=== PATIENT | male | born 1980 | race Caucasian/White ===

== ENCOUNTER 2022-08-20 03:07 | Inpatient (IN) | payer BC ==
[~2022-08-20] VITALS: Ht 170.2 cm; Wt 77.1 kg
[2022-08-20] MEDS ORDERED: DIAZEPAM 2 MG TABLET PO ONE (03:30)
[2022-08-20 03:46] LABS: ABG BASE EXCESS -2.8 mmol/L; ABG HCO3 22.9 mmol/L; ABG PCO2 43.2 mmHg (35.0-45.0); ABG PH 7.342 (7.350-7.450); ABG PO2 74.1 mmHg (75.0-100.0); ABG SITE LEFT RADIAL; ABG TOTAL HEMOGLOBIN 13.5 G/dL (13.5-18.0); COHb 2.5 % (0.5-1.5); MetHb 0.4 % (0.0-1.5); O2Hb 92.6 % (94.0-97.0); VENT MODE Nasal Cannula
[2022-08-20] MEDS ORDERED: DIAZEPAM 2 MG TABLET ONE ×2 (03:56→04:01)
--- NOTE | 2022-08-20 04:11 | NUR ---
Covid and Influenza A&B test sent to lab.
[2022-08-20 04:14] LABS: HEMATOCRIT 36.7 % (36.7-47.1); MEAN CORPUSCULAR HEMOGLOBIN 32.3 uug (23.8-33.4); MEAN CORPUSCULAR VOLUME 93.7 fL (73.0-96.2); PLATELET COUNT (AUTO) 215 K/uL (152-348)
[2022-08-20 04:16] LABS: CREATININE 1.9 mg/dL (0.6-1.3); POTASSIUM 4.5 mmol/L (3.5-5.1)
[2022-08-20 04:28] LABS: BILIRUBIN,DIRECT 0.2 mg/dL (0.0-0.2); BILIRUBIN,TOTAL 0.6 mg/dL (0.2-1.0); TOTAL PROTEIN, SERUM 6.6 g/dL (6.4-8.2)
[2022-08-20] MEDS ORDERED: levoFLOXacin 750 MG/D5W 150 ML PIGGYBACK IV ONE (04:30)
[2022-08-20] MEDS ORDERED: levoFLOXacin 750MG/D5W 150 ML IV ONE (04:38)
--- NOTE | 2022-08-20 04:45 | NUR ---
Called [facility] per Dr. Almaguer's request. Dr. Lloyd shipbuilding draftsperson.
[2022-08-20] MEDS ORDERED: FUROSEMIDE 20 MG/2 ML VIAL ONE (04:53)
[2022-08-20] MEDS ORDERED: NITROGLYCERIN OINT 1 GM PACKET TP ONE ×2 (04:54→05:00)
[2022-08-20] MEDS ORDERED: FUROSEMIDE 20 MG/2 ML VIAL IV ONE (05:00)
[2022-08-20] MEDS ORDERED: DIAZ2TAB PO (05:26)
[2022-08-20] MEDS ORDERED: OMEP20CA15 PO (05:26)
[2022-08-20] MEDS ORDERED: LAMO25TA10 PO (05:26)
[2022-08-20] MEDS ORDERED: BUPR1FIL SL (05:26)
[2022-08-20] MEDS ORDERED: CLON0.1T PO (05:26)
--- NOTE | 2022-08-20 05:26 | NUR ---
Pt unable to recall dosages of his medications, needs further follow up.
[2022-08-20] MEDS ORDERED: MAGNESIUM HYDROXIDE 30 ML LIQUID UDC PO PRN (07:30)
[2022-08-20] MEDS ORDERED: ENOXAPARIN SODIUM 40 MG/0.4 ML DISP.SYRIN SQ SCH (07:30)
[2022-08-20] MEDS ORDERED: ONDANSETRON 4 MG/2 ML VIAL IV PRN (07:30)
[2022-08-20] MEDS ORDERED: REMEDY ESSENTIAL ZINC PASTE 113 GM TP PRN (07:30)
[2022-08-20] MEDS ORDERED: ZOLPIDEM 5 MG TABLET PO PRN (07:30)
--- NOTE | 2022-08-20 07:40 | NUR ---
received pt on bed sleeping. pt came from a detox/rehab facility. no acuted distress note. pt on 3l nc saturating 95%. vital wnl.
[2022-08-20] MEDS ORDERED: DIAZEPAM 2 MG TABLET PO PRN (10:30)
[2022-08-20] MEDS ORDERED: ALBUTEROL SULFATE 2.5 MG/3 ML NEBU NEB PRN (10:30)
[2022-08-20 10:32] VITALS: BP 112/64
[2022-08-20] MEDS ORDERED: LAMOTRIGINE 25 MG TABLET PO SCH (11:00)
[2022-08-20 11:34] VITALS: BP 95/43
[2022-08-20] MEDS ORDERED: ONDA4TAB11 PO (12:43)
[2022-08-20] MEDS ORDERED: FOLI1TAB94 PO (12:43)
[2022-08-20] MEDS ORDERED: BUPR75TA8 PO (12:43)
[2022-08-20] MEDS ORDERED: THIA100T74 PO (12:43)
[2022-08-20] MEDS ORDERED: DIAZ5TAB PO (12:43)
[2022-08-20] MEDS ORDERED: GABA600T12 PO (12:43)
[2022-08-20] MEDS ORDERED: TRAZ-257 PO (12:43)
[2022-08-20] MEDS ORDERED: MULT-594 PO (12:43)
[2022-08-20] MEDS ORDERED: BUPR8TAB4 SL (12:43)
[2022-08-20] MEDS ORDERED: LAMOTRIGINE 25 MG TABLET PO ONE (13:00)
[2022-08-20] MEDS ORDERED: DIAZEPAM 5 MG TABLET PO PRN ×2 (13:00)
[2022-08-20] MEDS ORDERED: TRAZODONE 100 MG TABLET PO PRN (14:15)
[2022-08-20] MEDS: buPROPion 75 MG TABLET PO SCH (14:41)
[2022-08-20 16:31] VITALS: BP 88/45
--- NOTE | 2022-08-20 16:51 | NUR ---
pt is getting more agitated. Gave Valium prn. notified.
[2022-08-20 16:58] LABS: *BILIRUBIN,URIN NEGATIVE (NEGATIVE); *BLOOD, URINE NEGATIVE (NEGATIVE); *CLARITY,URINE CLEAR (CLEAR); *COLOR,URINE YELLOW (YELLOW); *KETONES,URINE NEGATIVE (NEGATIVE); *UROBILINOGEN,URINE 0.2 E.U./dl (NORMAL); LEUKOCYTE ESTERASE ,URINE NEGATIVE (NEGATIVE); NITRITE, URINE NEGATIVE (NEGATIVE); PH,URINE 6.5 (5.0-8.0); UGLUCOSE NEGATIVE (NEGATIVE)
--- NOTE | 2022-08-20 18:10 | NUR ---
notified rehab facility that pt is going AMA. faacility talked to the pt. and told him that he cant go back if he goes AMA.
--- NOTE | 2022-08-20 18:24 | NUR ---
pt want to go ama. but cancelled it because the facility will not accept him if he go ama. Addendum: 08/20/22 at 1825 by VALERIE CUEVAS RN notified.
[2022-08-20] MEDS: BUPRENORPHINE HCL 2 MG TAB.SUBL SL PRN (18:34)
--- NOTE | 2022-08-20 18:48 | NUR ---
pt states that he's taking Valium q4hr. notified.
--- NOTE | 2022-08-20 19:20 | NUR ---
pt refused patient monitor. notified. order to co. transfer to [facility]
[2022-08-20] MEDS ORDERED: CEFTRIAXONE 1 G in IV DEXTROSE 5% 50 ML IV SCH (19:45)
[2022-08-20] MEDS: ACETAMINOPHEN 325 MG TABLET PO PRN (21:00)
[2022-08-20] MEDS: DIAZEPAM 5 MG TABLET PO PRN (21:00)
[2022-08-20 21:15] VITALS: BP 109/66
[2022-08-20] MEDS ORDERED: CEFTRIAXONE /D5W 50ML IVPB **ER PYXIS IV ONE (21:59)
[2022-08-21] MEDS: DIAZEPAM 5 MG TABLET PO PRN ×2 (01:23→05:36)
[2022-08-21] MEDS: BUPRENORPHINE HCL 2 MG TAB.SUBL SL PRN ×4 (01:23→20:24)
[2022-08-21 04:25] VITALS: BP 126/79
--- NOTE | 2022-08-21 04:25 | NUR ---
Pt stable medicated as ordered, pending renal US. No withdrawal symptoms noted.
[2022-08-21] MEDS ORDERED: levoFLOXacin 500 MG/D5W 500 MG in PREMIXED 1 EACH IV SCH (05:00)
[2022-08-21] MEDS: PANTOPRAZOLE SODIUM 40 MG TABLET.DR PO SCH (06:25)
[2022-08-21 07:36] LABS: HEMATOCRIT 36.2 % (36.7-47.1); MEAN CORPUSCULAR HEMOGLOBIN 32.8 uug (23.8-33.4); MEAN CORPUSCULAR VOLUME 94.2 fL (73.0-96.2); PLATELET COUNT (AUTO) 216 K/uL (152-348)
[2022-08-21 08:00] LABS: CREATININE 1.4 mg/dL (0.6-1.3); MAGNESIUM 2.2 mg/dL (1.8-2.4); PHOSPHOROUS 3.7 mg/dL (2.5-4.9); POTASSIUM 4.1 mmol/L (3.5-5.1)
[2022-08-21] MEDS: FOLIC ACID 1 MG TABLET PO SCH (09:43)
[2022-08-21] MEDS: buPROPion 75 MG TABLET PO SCH (09:43)
[2022-08-21] MEDS: MULTIVITAMINS,THERAPEUTIC TABLET PO SCH (09:44)
[2022-08-21] MEDS: THIAMINE HCL 100 MG TABLET PO SCH (09:44)
[2022-08-21] MEDS: LAMOTRIGINE 100 MG TABLET PO SCH (09:44)
[2022-08-21] MEDS ORDERED: GUAIFENESIN/CODEINE 5 ML LIQUID UDC PO PRN ×2 (09:45→10:00)
[2022-08-21] MEDS ORDERED: GUAIFENESIN/DEXTROMETHORPHAN 5 ML UDC PO PRN (10:00)
[2022-08-21 11:13] VITALS: BP 112/72
[2022-08-21] MEDS ORDERED: BUPRENORPHINE HCL 2 MG TAB.SUBL SL PRN (14:30)
[2022-08-21] MEDS: DIAZEPAM 10 MG TABLET PO PRN ×2 (16:16→20:24)
[2022-08-21 16:44] VITALS: BP 115/73
[2022-08-21] MEDS ORDERED: MAG HYDROX/AL HYDROX/SIMETH 30 ML LIQUID UDC PO PRN (17:45)
[2022-08-21] MEDS: NICOTINE 21 MG/24HR PATCH TD SCH (17:56)
[2022-08-21 20:00] VITALS: BP 133/89
[2022-08-21] MEDS ORDERED: ATORVASTATIN 10 MG TABLET PO SCH (21:00)
[2022-08-21] MEDS ORDERED: CEFTRIAXONE 1 G in IV DEXTROSE 5% 50 ML IV SCH (22:00)
[2022-08-22] MEDS: BUPRENORPHINE HCL 2 MG TAB.SUBL SL PRN (03:20)
[2022-08-22] MEDS: DIAZEPAM 10 MG TABLET PO PRN (03:20)
[2022-08-22 04:00] VITALS: BP 124/90
[2022-08-22] MEDS: ACETAMINOPHEN 325 MG TABLET PO PRN (04:43)
[2022-08-22] MEDS: PANTOPRAZOLE SODIUM 40 MG TABLET.DR PO SCH ×2 (06:11→09:54)
--- NOTE | 2022-08-22 07:01 | NUR ---
Patient remains stable Medicated as ordereds. No withdrawal symptoms noted.
[2022-08-22 07:07] LABS: HEMATOCRIT 38.6 % (36.7-47.1); MEAN CORPUSCULAR HEMOGLOBIN 31.9 uug (23.8-33.4); MEAN CORPUSCULAR VOLUME 93.7 fL (73.0-96.2); PLATELET COUNT (AUTO) 257 K/uL (152-348)
[2022-08-22 07:12] LABS: CREATININE 1.3 mg/dL (0.6-1.3); MAGNESIUM 2.2 mg/dL (1.8-2.4); PHOSPHOROUS 4.4 mg/dL (2.5-4.9); POTASSIUM 3.8 mmol/L (3.5-5.1)
[2022-08-22] MEDS: LAMOTRIGINE 100 MG TABLET PO SCH (09:53)
[2022-08-22] MEDS: THIAMINE HCL 100 MG TABLET PO SCH (09:53)
[2022-08-22] MEDS: NICOTINE 21 MG/24HR PATCH TD SCH (09:54)
[2022-08-22] MEDS: MULTIVITAMINS,THERAPEUTIC TABLET PO SCH (09:54)
[2022-08-22] MEDS: FOLIC ACID 1 MG TABLET PO SCH (09:54)
[2022-08-22] MEDS: buPROPion 75 MG TABLET PO SCH (09:54)
[2022-08-22] MEDS ORDERED: AMOX-430 PO (10:09)
--- NOTE | 2022-08-22 10:15 | NUR ---
Social Work consult was requested for a patient on medsurg for discharge planning. Patient is a 41-year-old male admitted to the hospital for respiratory failure. Patient presents with anxious mood and congruent affect. Patient is alert and oriented X4. Patient states his primary contact lens curve grinder is his sister, Britt Carlos ([phone]) and she lives in [place]. Patient states that he is currently residing at [place] [address] ([phone]). Patient states he is currently unemployed and receiving disability. Patient states he has a history of alcohol and cocaine abuse. There is no toxicology report. Patient states that he is currently residing at [place] [address] ([phone]) to receive treatment of substance abuse. Patient denies suicidal or homicidal ideation. Patient states his discharge plan is to go back [place] [address] ([phone]).
--- NOTE | 2022-08-22 11:54 | NUR ---
Patient is a stable 41 year old male who came in for substance abuse. He is alert and orient x4, ambulatory. He is verbal, made his needs known. Denies pain with no apparent distress noted. Normal air movement. All morning medications given and tolerated well. Patient discharge today @11:54 [facility]. The caseworker from the detox center came to pick patient up. Patient teaching and instruction on where to picking table worker prescription provided.
== END 2022-08-22 11:45 | disposition home or self-care (01) | DRG 871 ==
LOC: ER 03:07 → TELE3 05:15 → MEDSURG3 19:25
PROVIDERS: ADMIT Internal Medicine; ATTEND Internal Medicine
DX: A41.9 Sepsis, unspecified organism (principal); G92.8 Other toxic encephalopathy; J18.9 Pneumonia, unspecified organism; J96.01 Acute respiratory failure with hypoxia; N17.0 Acute kidney failure with tubular necrosis; J81.0 Acute pulmonary edema; E87.1 Hypo-osmolality and hyponatremia; Z20.822 Contact with and (suspected) exposure to COVID-19; F17.210 Nicotine dependence, cigarettes, uncomplicated; F19.11 Other psychoactive substance abuse, in remission; F10.21 Alcohol dependence, in remission; E78.5 Hyperlipidemia, unspecified
CPT/HCPCS: 36415; 36600; 71045; 76770; 83735; 84100; 84484; 85025; 87040; 87086; 87400; 93005; 94664; A4663; G0378; J0696; J1650; J1940; J1956; J2405; J7040; U0003